=== PATIENT | female | born 1975 | race Caucasian/White ===

== ENCOUNTER 2021-10-08 05:23 | Day surgery (SDC) | payer OTHER ==
[~2021-10-08] VITALS: Ht 167.6 cm; Wt 63.6 kg
[2021-10-08 06:18] LABS: COVID AG,FIA SOURCE NASAL SWAB
[2021-10-08] MEDS ORDERED: SODIUM CHLORIDE 0.9% 1,000 ML IV ONE (06:30)
[2021-10-08] MEDS ORDERED: SODIUM CHLORIDE 0.9% 1,000 ML ONE (06:58)
[2021-10-08 07:31] LABS: GLUCOMETER DEV NAME(LOC) SDS.; GLUCOSE,POINT OF CARE 79 MG/DL (70-110)
[2021-10-08] MEDS ORDERED: IPRA4AER IH (07:57)
[2021-10-08] MEDS ORDERED: LEVO125T95 PO (07:57)
[2021-10-08] MEDS ORDERED: DULO-114 PO (07:57)
[2021-10-08] MEDS ORDERED: LEVO-72 PO (07:57)
[2021-10-08] MEDS ORDERED: PRED-729 PO (07:57)
[2021-10-08] MEDS ORDERED: DULO-113 PO (07:57)
[2021-10-08] MEDS ORDERED: GABA-1181 PO (07:57)
[2021-10-08] MEDS ORDERED: FLUT1BLS13 IH (07:57)
[2021-10-08] MEDS ORDERED: SUCR1TAB PO (07:57)
[2021-10-08] MEDS ORDERED: MONT-40 PO (07:57)
[2021-10-08] MEDS ORDERED: ASPI-1444 PO (07:57)
[2021-10-08] MEDS ORDERED: LEVO112T7 PO (07:57)
[2021-10-08] MEDS ORDERED: FentaNYL CITRATE PF 100 MCG/2 ML VIAL ONE (08:07)
[2021-10-08] MEDS ORDERED: MIDAZOLAM HCL 5 MG/ML VIAL ONE (08:07)
[2021-10-08] MEDS ORDERED: MethylPREDNISolone SOD SUCC 125 MG/2 ML VIAL IVP ONE (09:00)
[2021-10-08] MEDS ORDERED: MethylPREDNISolone SOD SUCC 125 MG/2 ML VIAL ONE (09:13)
[2021-10-08] MEDS ORDERED: OXYGEN THERAPY IH SCH (20:00)
== END 2021-10-08 10:25 | disposition home or self-care (01) ==
LOC: SURGERY 05:23
PROVIDERS: ATTEND Internal Medicine Critical Care Medicine
DX: J38.4 Edema of larynx (principal); B37.0 Candidal stomatitis; J45.909 Unspecified asthma, uncomplicated; E11.9 Type 2 diabetes mellitus without complications; I10 Essential (primary) hypertension; Z79.899 Other long term (current) drug therapy; Z87.01 Personal history of pneumonia (recurrent); Z98.890 Other specified postprocedural states
CPT/HCPCS: 31623; 31624; 71045; 82962; 87015; 87070; 87101; 87206; 87220; 87426; 88112; 88184; 88185; 88312; C9803; J2250; J2930; J3010; J7030